=== PATIENT | female | born 1950 | race Caucasian/White ===

== ENCOUNTER 2017-10-29 02:59 | Emergency (ER) | payer OTHER ==
[~2017-10-29] VITALS: Ht 167.6 cm; Wt 61.1 kg
[2017-10-29 04:40] LABS: EOSINOPHIL (%) 0.4 % (0-5); HEMATOCRIT 35.7 % (36.0-46.0); IMMATURE GRANULOCYTE (%) 0.4 % (0.0-0.7); INSTRUMENT ABS NEUTROPHIL CT 5.3 K/uL; LYMPHOCYTE COUNT 1.7 K/uL (1.0-2.8); MCH 30.9 PG (29.0-34.0); MCHC 33.9 G/DL (30.0-36.0); MCV 91.3 FL (83-99); MEAN PLAT.VOLUME 11.3 uM^3 (9.5-12.4); MONOCYTE (%) 7.9 % (3-12); MONOCYTE COUNT 0.6 K/uL (0-0.8); NEUTROPHIL (%) 68.6 % (45-76); NEUTROPHIL COUNT 5.3 K/uL (1.8-6.4); PLATELET COUNT 157 K/uL (156-360); RBC DIS.WIDTH-CV 13.2 % (11.8-14.6); RED BLOOD COUNT 3.91 M/uL (3.80-5.20); WHITE BLOOD COUNT 7.7 K/uL (4.1-10.2)
[2017-10-29 04:55] LABS: CHLORIDE 103 mEq/L (99-109)
[2017-10-29 04:56] LABS: MAGNESIUM 1.6 mg/dL (1.3-2.7); POTASSIUM 3.7 mEq/L (3.7-5.4); SODIUM 140 mEq/L (136-147)
[2017-10-29] MEDS ORDERED: MONTELUKAST SOD10 MG PO (04:56)
[2017-10-29] MEDS ORDERED: PRAVASTATIN SOD20 MG PO (04:56)
[2017-10-29 04:58] LABS: GLUCOSE 171 mg/dL (70-99)
[2017-10-29 04:59] LABS: ANION GAP 11 MEQ/L (2-14)
[2017-10-29 05:00] LABS: TOTAL BILIRUBIN 0.3 mg/dL (0.0-1.0)
[2017-10-29 05:01] LABS: ALKALINE PHOSPHATASE 89 IU/L (3-129)
[2017-10-29 05:02] LABS: GFR ESTIMATE (CALCULATED) > 59 mL/min/; TROP-I INTERPRETATION NEGATIVE; TROPONIN-I < 0.01 ng/mL (0.0-0.30)
[2017-10-29 05:03] LABS: UREA NITROGEN (BUN) 14 mg/dL (9-23)
[2017-10-29] MEDS ORDERED: MEDROL DOSEPAK4 MG PO (06:38)
[2017-10-29] MEDS ORDERED: VALIUM5 MG PO (06:39)
[2017-10-29 12:05] VITALS: BP 113/62
== END 2017-10-29 12:07 | disposition home or self-care (01) ==
LOC: EME 02:59
PROVIDERS: Emergency Medicine
DX: M54.16 Radiculopathy, lumbar region (principal); M79.1 Myalgia
CPT/HCPCS: 72170; 80053; 83735; 84484; 85025; 93005; 99281; 99285; G8978 GP CI; G8979 GP CH; G8980 GP CI; G8987 GO CH; G8987 GO CJ; G8989 CJ; J1885; J2405; J2765; J3010; J7030